=== PATIENT | male | born 1990 | race African-American/Black ===

== ENCOUNTER 2021-11-09 13:37 | Emergency (ER) | payer SELFPAY ==
[2021-11-09 14:21] VITALS: TEMP 97.9; BMI 33.9
[2021-11-09] MEDS ORDERED: SODIUM CHLORIDE 0.9% 500 ML INFUS.BAG IV ONE (16:25)
[2021-11-09] MEDS ORDERED: ACETAMINOPHEN 1000 MG/100 ML VIAL IVPB ONE (16:28)
[2021-11-09] MEDS ORDERED: ACETAMINOPHEN INJECTION 100 ML IVPB ONE (17:31)
[2021-11-09 17:52] LABS: BASO % 0.3 % (0-2.0); EOS % 0.1 % (0-4.5); HEMATOCRIT 34.7 % (35.4-49); HEMOGLOBIN 11.9 GM/dL (11.7-16.9); LYMPH % 14.4 % (8-40); MCH 28.6 pg (25.7-33.7); MCHC 34.3 g/dl (32.0-35.9); MEAN CELL VOLUME 83.5 fl (80-96); MEAN PLT VOLUME 8.1 fl (7.5-11.1); MONO % 5.7 % (3.8-10.2); NEUT % 79.5 % (42.8-82.8); PLATELET COUNT 206 10^3/uL (134-434); RBC 4.16 M/mm3 (4.00-5.60); RDW 13.2 % (11.9-15.9); WHITE BLOOD COUNT 5.8 K/mm3 (4.0-10.0)
[2021-11-09 18:02] LABS: CHLORIDE 106 mmol/L (98-107); SODIUM 140 mmol/L (136-145)
[2021-11-09 18:04] LABS: CALCIUM 8.7 mg/dL (8.5-10.1)
[2021-11-09 18:05] LABS: ALBUMIN 3.9 g/dl (3.4-5.0); ANION GAP 7 MMOL/L (8-16); BLOOD UREA NITROGEN 10.9 mg/dL (7-18); CO2 28 mmol/L (21-32); GLUCOSE,RANDOM 122 mg/dL (74-106)
[2021-11-09 18:08] LABS: CREATININE 0.9 mg/dL (0.55-1.3); SGOT/AST 62 U/L (15-37); SGPT/ALT 36 U/L (13-61)
[2021-11-09 18:10] LABS: TOT PROT 8.7 g/dl (6.4-8.2)
[2021-11-09 18:11] LABS: ALK PHOS 55 U/L (45-117)
[2021-11-09 19:12] VITALS: BP 112/72; PULSE 70
== END 2021-11-09 19:12 | disposition home or self-care (01) ==
LOC: JER 13:37
PROC: 3E0333Z Introduction of Anti-inflammatory into Peripheral Vein, Percutaneous Approach (ICD-10-PCS; principal; 2021-11-09)
DX: R55 Syncope and collapse (principal); S93.401A Sprain of unspecified ligament of right ankle, initial encounter; M25.511 Pain in right shoulder; W10.9XXA Fall (on) (from) unspecified stairs and steps, initial encounter
CPT/HCPCS: 36415; 71046-TC-FY; 73030-TC-RT-FY; 73610-TC-RT-FY; 73630-TC-RT-FY; 80053; 82550; 82553; 83735; 84484; 85025; 93005; 93010; 99285-25; J0131